=== PATIENT | female | born 1985 | race Caucasian/White ===

== ENCOUNTER 2016-10-15 05:12 | Emergency (ER) | payer BC ==
--- NOTE | 2016-10-15 05:37 | ERPHSYRPT ---
- History of Present Illness Time Seen by Provider: 10/15/16 05:30 Source: patient Exam Limitations: no limitations Patient Subjective Stated Complaint: pt states she thinks she might have strep throat. c/o pressure in jaw and throat. Triage Nursing Assessment: pt alert and oriented, answers questions approp. skin pink warm and dry. respirations nonlabored with lungs cta. pt ambulatory with steady gait noted. throat with redness noted, no exudate. Physician History: The patient is a 30-year-old female with her complains of a sore throat and a stuffy nose for 2 days. Her past medical history is unremarkable. Timing/Duration: gradual onset, yesterday Severity: severe ENT Location: throat Prearrival Treatment: no prearrival treatment Modifying Factors: Improves With: nothing Associated Symptoms: nasal congestion/drainage, sore throat Allergies/Adverse Reactions: No Known Drug Allergies Allergy (Unverified 10/15/16 05:33) Home Medications: No Home Meds 1 ea UD 10/15/16 [History] Hx Tetanus, Diphtheria Vaccination/Date Given: Yes Hx Influenza Vaccination/Date Given: No Hx Pneumococcal Vaccination/Date Given: No Immunizations Up to Date: Yes - Review of Systems Constitutional: No Fever, No Chills Eyes: No Symptoms Ears, Nose, & Throat: Nose Congestion, Throat Pain, Hoarse Respiratory: No Cough, No Dyspnea Cardiac: No Chest Pain, No Edema, No Syncope Abdominal/Gastrointestinal: No Abdominal Pain, No Nausea, No Vomiting, No Diarrhea Genitourinary Symptoms: No Dysuria Musculoskeletal: No Back Pain, No Neck Pain Skin: No Rash Neurological: No Dizziness, No Focal Weakness, No Sensory Changes Psychological: No Symptoms Endocrine: No Symptoms Hematologic/Lymphatic: No Symptoms Immunological/Allergic: No Symptoms All Other Systems: Reviewed and Negative - Past Medical History Pertinent Past Medical History: No - Past Surgical History Past Surgical History: No - Social History Smoking Status: Never smoker Exposure to second hand smoke: No Drug Use: none Patient Lives Alone: No - Female History Hx Last Menstrual Period: 3 weeks ago - Nursing Vital Signs Nursing Vital Signs: Initial Vital Signs Temperature 98.0 F Temperature Source Oral Pulse Rate 98 Respiratory Rate 16 Blood Pressure [Right Arm] 153/67 Pain Intensity 5 - Physical Exam General Appearance: no apparent distress, alert Eye Exam: bilateral eye: PERRL, EOMI Ear Exam: bilateral ear: TM normal Nasal Exam: normal inspection Throat Exam: pharynx tenderness (pharynx is erythematous with two small pinpoint red lesions.), No tonsillar exudate Neck Exam: supple Cardiovascular/Respiratory Exam: normal breath sounds, regular rate/rhythm Abdominal Exam: non-tender, soft Neurologic Exam: alert, oriented x 3, sensation nml, No motor deficits Skin Exam: normal color, warm, dry SpO2 Interpretation: normal SpO2: 99 Oxygen Delivery: Room Air Ordered Tests: Active Orders 24 hr Category Date Time Status CULTURE, THROAT Stat Lab 10/15/16 05:45 Received STREP SCREEN-BETA A Stat Lab 10/15/16 05:45 Completed Lab/Rad Data: Laboratory Results 10/15/16 Range/Units 05:45 Streptococcus Screen NEGATIVE (Negative) - Departure Time of Disposition: 06:26 Departure Disposition: Home Clinical Impression: Acute pharyngitis Condition: Stable Critical Care Time: No Additional Instructions: You have acute pharyngitis caused by a virus. Your rapid strep test was negative. Take Tylenol and ibuprofen as needed for pain. You may also gargle with warm salt water as needed.
[2016-10-15 06:33] VITALS: BP 119/75; PULSE 92; O2SAT 100
== END 2016-10-15 06:34 | disposition home or self-care (01) ==
LOC: ED 05:12
DX: J02.9 Acute pharyngitis, unspecified (principal)
CPT/HCPCS: 87070; 87430; 99282; 99283